=== PATIENT | female | born 1970 | race Caucasian/White ===

== ENCOUNTER → 2024-02-24 07:06 | Outpatient (REF) | payer OTHER, SELFPAY | LOC: WDC 07:06 | PROVIDERS: ATTENDING PHYSICIAN Obstetrics & Gynecology; FAMILY PHYSICIAN Internal Medicine | DX: Z12.31 Encounter for screening mammogram for malignant neoplasm of breast (principal) | CPT/HCPCS: 77063; 77067 ==

== ENCOUNTER → 2024-12-22 09:30 | Outpatient (REF) | payer BC, SELFPAY | LOC: WDC 09:30 | PROVIDERS: ATTENDING PHYSICIAN Obstetrics & Gynecology; FAMILY PHYSICIAN Internal Medicine | DX: N64.4 Mastodynia (principal) | CPT/HCPCS: 76642; 77062; 77066 ==